=== PATIENT | female | born 1980 | race Hispanic/Latino ===

== ENCOUNTER 2018-04-04 20:43 | Emergency (ER) | payer MEDICARE ==
[~2018-04-04] VITALS: Ht 167.6 cm; Wt 77.1 kg
[2018-04-04] MEDS ORDERED: ALBUTEROL/IPRATROPIUM 3 ML NEB NEB ONE (21:00)
[2018-04-04] MEDS ORDERED: DEXAMETHASONE SOD PHOS 10 MG/1 ML VIAL IM NR (21:00)
[2018-04-04 21:59] VITALS: BP 123/61
== END 2018-04-04 21:50 | disposition home or self-care (01) ==
LOC: FSED 20:43
DX: R50.9 Fever, unspecified (principal); R05 Cough; R51 Headache; J20.9 Acute bronchitis, unspecified; J01.00 Acute maxillary sinusitis, unspecified; J01.20 Acute ethmoidal sinusitis, unspecified; J01.10 Acute frontal sinusitis, unspecified
CPT/HCPCS: 87400; 99283

== ENCOUNTER 2022-05-16 14:34 | Observation (INO) | payer MEDICARE, OTHER ==
[~2022-05-16] VITALS: Ht 162.6 cm; Wt 89.4 kg
[2022-05-16] MEDS ORDERED: SODIUM CHLORIDE 0.9% 1000ML 1,000 ML IV STA ×2 (15:01)
[2022-05-16] MEDS ORDERED: FAMOTIDINE 20 MG/2 ML VIAL IV ONE ×2 (15:15→15:41)
[2022-05-16] MEDS ORDERED: ONDANSETRON HCL INJ 2MG/ML 2ML 2 MG/ML VIAL IV ONE (15:15)
[2022-05-16] MEDS ORDERED: ACETAMINOPHEN 325 MG TAB PO STA (15:35)
[2022-05-16] MEDS ORDERED: ONDANSETRON HCL INJ 2MG/ML 2ML 2 MG/ML VIAL ONE (15:41)
[2022-05-16] MEDS ORDERED: SODIUM CHLORIDE 0.9% 1000ML 2,000 ML ONE (15:41)
[2022-05-16] MEDS ORDERED: DEXAMETHASONE SOD PHOS 10 MG/1 ML VIAL IV ONE ×2 (15:45→21:45)
[2022-05-16] MEDS ORDERED: SODIUM CHLORIDE FLUSH 10 ML SYR INJ PRN (15:45)
[2022-05-16] MEDS ORDERED: DIPHENHYDRAMINE HCL INJ 50 MG/ML VIAL IV ONE ×2 (15:45→21:45)
[2022-05-16] MEDS ORDERED: SODIUM CHLORIDE 0.9% 250ML 250 ML IV ONE ×3 (15:45→21:45)
[2022-05-16 17:20] VITALS: BP 102/66
[2022-05-16 17:52] VITALS: BP 102/66
[2022-05-16 18:10] VITALS: BP 102/66
[2022-05-16] MEDS ORDERED: FERROUS SULFAT325 MG PO (18:21)
[2022-05-16] MEDS ORDERED: DOCUSATE SODIU100 MG PO (18:21)
[2022-05-16 18:34] LABS: EOSINOPHILS % 0.5 % (0.0-6.0); LYMPHOCYTES # (AUTO) 0.9 (1.0-3.2); LYMPHOCYTES % 15.5 % (18.0-39.1); MEAN CORPUSCULAR HEMOGLOBIN 20.4 pg (28-32); MEAN CORPUSCULAR HGB CONC 26.7 g/dL (31-35); MEAN CORPUSCULAR VOLUME 76.5 fL (81-99); MONOCYTES # (AUTO) 0.3 (0.2-0.8); MONOCYTES % 4.7 % (4.4-11.3); NEUTROPHILS # (AUTO) 4.4 (2.1-6.9); NEUTROPHILS % 78.9 % (38.7-80.0); PLATELET COUNT 138 x10e3/uL (140-360); RED BLOOD COUNT 2.94 x10e6/uL (3.6-5.1); RED CELL DISTRIBUTION WIDTH 24.6 % (11.7-14.4)
[2022-05-16 18:38] LABS: HEMATOCRIT 22.5 % (34.2-44.1)
[2022-05-16 20:45] VITALS: BP 110/63
[2022-05-16 20:52] VITALS: BP 110/63
[2022-05-16] MEDS ORDERED: HYDRALAZINE HCL 20 MG/ML VIAL IV PRN (21:15)
[2022-05-16] MEDS ORDERED: LIDOCAINE 4% PATCH TP PRN (21:15)
[2022-05-16] MEDS ORDERED: ACETAMINOPHEN 325 MG TAB PO PRN (21:15)
[2022-05-16] MEDS ORDERED: DEXTROSE 50% SYRINGE 50 ML IV PRN (21:15)
[2022-05-16] MEDS ORDERED: ONDANSETRON HCL INJ 2MG/ML 2ML 2 MG/ML VIAL IV PRN (21:15)
[2022-05-16] MEDS ORDERED: BENZONATATE 100 MG CAP PO PRN (21:15)
[2022-05-16] MEDS ORDERED: POTASSIUM CHLORIDE 20 MEQ TAB CR PO PRN (21:15)
[2022-05-16] MEDS ORDERED: ALBUTEROL/IPRATROPIUM 3 ML NEB NEB PRN (21:15)
[2022-05-16] MEDS ORDERED: DIPHENHYDRAMINE HCL 25 MG CAP PO PRN (21:15)
[2022-05-16] MEDS ORDERED: DOCUSATE SODIUM 100 MG CAP PO PRN (21:15)
[2022-05-16] MEDS ORDERED: MELATONIN 5 MG TABLET PO PRN (21:15)
[2022-05-16] MEDS ORDERED: SIMETHICONE 80 MG CHEW PO PRN (21:15)
[2022-05-16] MEDS ORDERED: TRAMADOL HCL 50 MG TAB PO PRN (21:15)
[2022-05-17] VITALS (8 sets, daily range): BP systolic 101–136; BP diastolic 59–80
[2022-05-17] MEDS ORDERED: SODIUM CHLORIDE 0.9% 250ML 250 ML ONE (01:17)
[2022-05-17 07:24] LABS: HEMATOCRIT 29.7 % (34.2-44.1); HEMOGLOBIN 8.4 g/dL (12.0-16.0)
[2022-05-17] MEDS ORDERED: PANTOPRAZOLE SOD 40 MG TABEC PO SCH (07:30)
[2022-05-17 11:11] LABS: CALCIUM 8.3 mg/dL (8.4-10.2); CREATININE, SERUM 0.62 mg/dL (0.57-1.11)
[2022-05-17] MEDS ORDERED: ONDANSETRON HCL 4 MG ORAL DISINTEGRATING TAB PO PRN (11:45)
== END 2022-05-17 14:31 | disposition home or self-care (01) ==
LOC: FSED 15:03 → ERHOLD 15:39 → MED/SURG 16:58
PROVIDERS: ADMIT Internal Medicine; ATTEND Internal Medicine
DX: N92.0 Excessive and frequent menstruation with regular cycle (principal); D50.9 Iron deficiency anemia, unspecified; D62 Acute posthemorrhagic anemia; Z20.822 Contact with and (suspected) exposure to COVID-19
CPT/HCPCS: 36430; P9054; 36415; 80048; 80053; 81003; 85014; 85018; 85025; 86850; 86900; 86920; 93005; 94799; 96374; 96376; 99284; G0378; J1100; J1200; J2405; J7030; J7050; P9016

== ENCOUNTER 2022-08-08 05:28 | Emergency (ER) | payer OTHER ==
[~2022-08-08] VITALS: Ht 162.6 cm; Wt 88.0 kg
[~2022-08-08 05:28] MED LIST: DOCUSATE SODIU100 MG PO; FERROUS SULFAT325 MG PO
[2022-08-08 05:36] VITALS: O2SAT 100
[2022-08-08] MEDS ORDERED: KETOROLAC TROMETHAMINE 30 MG/ML VIAL IV STA ×2 (06:20→07:46)
[2022-08-08] MEDS ORDERED: ONDANSETRON HCL INJ 2MG/ML 2ML 2 MG/ML VIAL IV STA (06:20)
[2022-08-08] MEDS ORDERED: ACETAMINOPHEN 325 MG TAB PO ONE (06:30)
[2022-08-08] MEDS ORDERED: SODIUM CHLORIDE 0.9% 1000ML 1,000 ML IV SCH (06:30)
[2022-08-08] MEDS ORDERED: ONDANSETRON HCL INJ 2MG/ML 2ML 2 MG/ML VIAL ONE (06:31)
[2022-08-08] MEDS ORDERED: ACETAMINOPHEN 325 MG TAB ONE (06:32)
[2022-08-08] MEDS ORDERED: KETOROLAC TROMETHAMINE 30 MG/ML VIAL ONE ×2 (06:32→07:46)
[2022-08-08] MEDS ORDERED: SODIUM CHLORIDE 0.9% 1000ML 1,000 ML ONE (06:32)
[2022-08-08] MEDS ORDERED: PENICILLIN G BENZATHINE LA 1.2 MU TBX IM STA (06:49)
[2022-08-08] MEDS ORDERED: ONDANSETRON ODT4 MG PO (07:48)
== END 2022-08-08 08:44 | disposition home or self-care (01) ==
LOC: FSED 06:09
DX: R50.9 Fever, unspecified (principal); J02.0 Streptococcal pharyngitis; D64.9 Anemia, unspecified; M54.50 Low back pain, unspecified
CPT/HCPCS: 80053; 81003; 81025; 83518; 85025; 87400; 96374; 96376; 99283; J0561; J1885; J2405; J7030